=== PATIENT | female | born 1975 | race Two or more races ===

== ENCOUNTER 2018-07-11 10:03 | Emergency (ER) | payer OTHER ==
[~2018-07-11] VITALS: Ht 162.6 cm; Wt 53.1 kg
[2018-07-11] MEDS ORDERED: PRISTIQ ER50 MG PO (10:16)
== END 2018-07-11 22:03 | disposition home or self-care (01) ==
LOC: ER 10:03
DX: N39.0 Urinary tract infection, site not specified (principal); R10.813 Right lower quadrant abdominal tenderness; G57.01 Lesion of sciatic nerve, right lower limb

== ENCOUNTER 2019-11-03 11:16 | Emergency (ER) | payer OTHER ==
[~2019-11-03] VITALS: Ht 162.6 cm; Wt 54.4 kg
[~2019-11-03 11:16] MED LIST: PRISTIQ ER50 MG PO
== END 2019-11-03 15:46 | disposition home or self-care (01) ==
LOC: ER 11:16
DX: K29.60 Other gastritis without bleeding (principal); E86.0 Dehydration

== ENCOUNTER 2020-04-08 17:14 | Emergency (ER) | payer OTHER ==
[~2020-04-08] VITALS: Ht 157.5 cm; Wt 63.5 kg
== END 2020-04-08 18:22 | disposition home or self-care (01) ==
LOC: ER 17:14
DX: G89.18 Other acute postprocedural pain (principal); K08.89 Other specified disorders of teeth and supporting structures